=== PATIENT | female | born 1995 | race Caucasian/White ===

== ENCOUNTER 2017-03-16 13:04 | Emergency (ER) | payer MEDICAID ==
[~2017-03-16] VITALS: Ht 160 cm; Wt 57.5 kg
[~2017-03-16 13:04] MED LIST: FERR-55 PO; FOLI-49 PO; PNV1TABL43 PO
[2017-03-16 13:07] VITALS: Ht 160 cm; Wt 57.5 kg
[2017-03-16 15:07] LABS: ADD SCAN DIFF NO
[2017-03-16 15:09] LABS: BASOPHILS % 0.2 % (0.0-2.0); EOSINOPHILS # 0.2 10^3/ul (0.0-0.5); EOSINOPHILS % 2.7 % (0.0-7.0); HEMATOCRIT 31.8 % (37.0-47.0); HEMOGLOBIN 10.9 g/dl (12.0-16.0); LYMPHOCYTES # 1.5 10^3/ul (0.8-2.9); LYMPHOCYTES % 17.8 % (15.0-51.0); MEAN CORPUSCULAR HGB CONC 34.3 g/dl (32.0-37.0); MEAN CORPUSCULAR VOLUME 96.4 fl (82.0-101.0); MEAN PLATELET VOLUME 10.2 fl (7.4-10.4); MONOCYTE # 0.5 10^3/ul (0.3-0.9); MONOCYTES % 6.3 % (0.0-11.0); NEUTROPHIL # 6.2 10^3/ul (1.6-7.5); NEUTROPHILS % 72.4 % (39.0-77.0); PLATELET COUNT 219 10^3/UL (140-415); RED CELL DISTRIBUTION WIDTH 12.9 % (11.5-14.5); WHITE BLOOD COUNT 8.6 10^3/ul (4.8-10.8)
[2017-03-16 15:13] LABS: ADD UMIC NO; URINE BILIRUBIN (Dip) NEGATIVE (NEGATIVE); URINE BLOOD (Dip) NEGATIVE (NEGATIVE); URINE COLOR LT. YELLOW (YELLOW); URINE GLUCOSE (Dip) NEGATIVE (NEGATIVE); URINE KETONES (Dip) NEGATIVE (NEGATIVE); URINE LEUKOCYTE ESTERASE (Dip) NEGATIVE (NEGATIVE); URINE NITRITE (Dip) NEGATIVE (NEGATIVE); URINE TOTAL PROTEIN (Dip) NEGATIVE (NEGATIVE); URINE UROBILINOGEN (Dip) 0.2 E.U./dL (0.1-1.0)
--- NOTE | 2017-03-16 15:24 | RADRPT ---
PROCEDURE: US OB. CLINICAL INDICATION: Size and dates , pelvic pain TECHNIQUE: Multiple sonographic images of the pelvis and gravid uterus were obtained. The images were reviewed on a PACS workstation. COMPARISON: No prior studies are available for comparison. FINDINGS: The cervix is closed with a length of 4.0 cm. There is a single viable intrauterine gestation. Cardiac activity is present with 140 beats per min [place]. There is a variable/breech presentation. The placenta is anterior. There is no evidence for an abruption or placenta previa. There is a normal amount of amniotic fluid with a MVP = 5.3 cm. Measurements were made in order to determine age. The results are as follows: BPD =5.3 cm HC =19 cm AC =16.4 cm FL =3.6 cm Estimated gestational age of approximately 21 weeks and 4 days based on ultrasound measurements. Clinical age: 21 weeks and 3 days. The estimated date of delivery is 07/23/17, based on ultrasound measurements. The EFW = 428 g, 48%, based on LMP age. The ovaries are not visualized. RPTAT: AA IMPRESSION: Single viable intrauterine gestation of approximately 21 weeks and 4 days based on ultrasound measu rements. .Wiliam Farmer MD, Date Time Electronically viewed and signed by .Wiliam Farmer MD, on 03/16/2017 15:24 .S/
[2017-03-16 15:26] LABS: ALBUMIN/GLOBULIN RATIO 1.21
[2017-03-16 15:33] LABS: ALBUMIN 3.9 g/dl (3.3-4.9); BILIRUBIN,INDIRECT 0.2 mg/dl (0-1.1); BILIRUBIN,TOTAL 0.2 mg/dl (0.2-1.3); CALCIUM 8.9 mg/dl (8.4-10.2); CREATININE 0.41 mg/dl (0.44-1.00); POTASSIUM 3.7 mmol/L (3.5-5.1); TOTAL PROTEIN 7.1 g/dl (6.1-8.1)
[2017-03-16] MEDS ORDERED: ACET325T33 PO (15:52)
--- NOTE | 2017-03-16 16:44 | ERD ---
ER Documentation Chief Complaint Date/Time DATE: 03/16/17 TIME: 16:37 Chief Complaint abdominal pain and bilateral feet swelling x 2 days, 19 weeks HPI 21-year-old female with last menstrual period October 16 who is 19 weeks presents to the emergency room complaining of left pelvic pain that comes and goes for the past couple months. Patient states the pain has started this morning again and she rates it moderate in severity. Patient denies any nausea, vomiting, fevers, diarrhea, constipation, urinary symptoms. She states that she also has noted swelling in her feet that come and go for the past couple days, she states increased with standing. She denies any swelling in her feet at this time. She denies any chest pain, shortness of breath, palpitations ROS All systems reviewed and are negative except as per history of present illness. Medications Home Meds Active Scripts Acetaminophen* (Tylenol*) 325 Mg Tablet, 2 TAB PO Q6 Y for PAIN AND OR ELEVATED TEMP, #20 TAB Prov:NALDO CHAMBERLAIN PA-C 03/16/17 Reported Medications Folic Acid* (Folic Acid*) 1 Mg Tablet, 1 MG PO DAILY 09/28/13 Ferrous Sulfate* (Ferrous Sulfate*) 325 Mg Tablet, 325 MG PO BID 09/28/13 Vit/Fe Fumarate/Fa* ( Vitamin Tablet*) 1 Tab Tablet, 1 TAB PO DAILY 09/28/13 Allergies Allergies: Coded Allergies: No Known Allergies (Verified Allergy, 11/12/13) Physical Exam Vitals Vital Signs Date Time Temp Pulse Resp B/P Pulse Ox O2 Delivery O2 Flow Rate FiO2 03/16/17 13:07 98.3 87 20 104/58 100 Physical Exam GENERAL: well-developed/well-nourished, in no apparent distress, non-toxic appearing HENT: NC/AT, moist mucous membranes EYES: Conjunctiva normal NECK: Supple, no lymphadenopathy PULM: CTA bilaterally, no rales, rhonchi, or wheezing heard CV: Normal S1S2, RRR, good capillary refill GI: Soft, non-distended, nontender to palpation Normal bowel sounds, no masses or organomegaly felt on exam No gross peritonitis, no bruits Negative Rovsing, negative Dai, negative McBurney's point, Negative CVAT BACK: No masses EXT: No clubbing, cyanosis, or edema NEURO: Alert and Orientated SKIN: Intact, normal turgor PSYCH: Normal mood and mentation Result Diagram: 03/16/17 1455 03/16/17 1455 Results 24 hrs Laboratory Tests Test 03/16/17 14:55 White Blood Count 8.610^3/ul Red Blood Count 3.3010^6/ul Hemoglobin 10.9g/dl Hematocrit 31.8% Mean Corpuscular Volume 96.4fl Mean Corpuscular Hemoglobin 33.0pg Mean Corpuscular Hemoglobin Concent 34.3g/dl Red Cell Distribution Width 12.9% Platelet Count 95001^3/UL Mean Platelet Volume 10.2fl Neutrophils % 72.4% Lymphocytes % 17.8% Monocytes % 6.3% Eosinophils % 2.7% Basophils % 0.2% Nucleated Red Blood Cells % 0.0/100WBC Neutrophils # 6.210^3/ul Lymphocytes # 1.510^3/ul Monocytes # 0.510^3/ul Eosinophils # 0.210^3/ul Basophils # 0.010^3/ul Nucleated Red Blood Cells # 0.010^3/ul Urine Color LT. YELLOW Urine Clarity CLEAR Urine pH 6.0 Urine Specific [place] 1.010 Urine Ketones NEGATIVE Urine Nitrite NEGATIVE Urine Bilirubin NEGATIVE Urine Urobilinogen 0.2 E.U./dL Urine Leukocyte Esterase NEGATIVE Urine Hemoglobin NEGATIVE Urine Glucose NEGATIVE% Urine Total Protein NEGATIVE Sodium Level 135mmol/L Potassium Level 3.7mmol/L Chloride Level 106mmol/L Carbon Dioxide Level 23mmol/L Anion Gap 10 Blood Urea Nitrogen 9mg/dl Creatinine 0.41mg/dl Glucose Level 84mg/dl Calcium Level 8.9mg/dl Total Bilirubin 0.2mg/dl Direct Bilirubin 0.00mg/dl Indirect Bilirubin 0.2mg/dl Aspartate Amino Transf (AST/SGOT) 32IU/L Alanine Aminotransferase (ALT/SGPT) 36IU/L Alkaline Phosphatase 61IU/L Total Protein 7.1g/dl Albumin 3.9g/dl Globulin 3.20g/dl Albumin/Globulin Ratio 1.21 Lipase 37U/L Procedures/MDM This is a 21-year-old female with 19 weeks presenting to the emergency department complaining of left-sided pelvic pain, on examination her abdominal exam was unremarkable. Possibly non-specific pain due to , differentials considered include but not limited to constipation, diverticulitis , cholecystitis, appendicitis, urinary tract infection, and other acute abdominal conditions. Lab work was done in the ED. Lab work was drawn. CBC did not show any evidence of leukocytosis or anemia. CMP did not show any evidence of renal, liver, or electrolyte abnormalities. Lipase was normal. UA did not show any evidence of hemoglobin or urinary tract infection. Pelvic ultrasound was done and radiologist stated: Single viable intrauterine gestation of approximately 21 weeks and 4 days based on ultrasound measurements. In addition patient has a complaint of bilateral swelling in her feet, this is likely due to swelling from and prolonged standing. She did not have any edema or swelling on examination. Low suspicion for DVT or CHF at this time. Patient is appropriate for discharge to follow-up with her primary care physician and her [employer]. I have discussed with her to return to the ER for any worsening sinus symptoms. She understands and agrees with plan Stable discharge home Departure Diagnosis: Primary Impression: Pelvic pain Additional Impression: Peripheral edema Condition: Stable Patient Instructions: Peripheral Edema, Bilateral, Pelvic Pain In : Unclear (2-3 Trimester) Referrals: Remed[facility] doctorponce Additional Instructions: Visite a vides marce pablo para un EXAMEN.Regrese a estas instalaciones si no se mejora brian esperbamos o brian le dijimos. Regrese a estas instalaciones si no se mejora brian esperbamos o brian le dijimos. NALDO CHAMBERLAIN PA-C March 16, 2017 16:44
== END 2017-03-16 17:07 | disposition home or self-care (01) ==
LOC: FTE 13:04
DX: O26.892 Other specified pregnancy related conditions, second trimester (principal); R10.2 Pelvic and perineal pain; R60.0 Localized edema; Z3A.21 21 weeks gestation of pregnancy
CPT/HCPCS: 76805; 80053; 81003; 83690; 85025; 87086; Z7502

== ENCOUNTER 2017-04-18 14:31 | Outpatient (CLI) | payer MEDICAID ==
[~2017-04-18] VITALS: Ht 152.4 cm; Wt 61.3 kg
[~2017-04-18 14:31] MED LIST changes: +ACET325T33 PO
[2017-04-18 15:08] VITALS: BP 104/57; PULSE 90; RESP 18; Ht 152.4 cm; Wt 61.3 kg
[2017-04-18 15:58] LABS: ADD UMIC YES; UR ASCORBIC ACID 40 mg/dL (NEGATIVE); UR BILIRUBIN (Dip) NEGATIVE (NEGATIVE); UR BLOOD (Dip) NEGATIVE (NEGATIVE); UR CLARITY SLIGHTLY CLOUDY (CLEAR); UR COLOR YELLOW (YELLOW); UR GLUCOSE (Dip) NEGATIVE (NEGATIVE); UR KETONES (Dip) NEGATIVE (NEGATIVE); UR LEUKOCYTE ESTERASE (Dip) TRACE Leu/ul (NEGATIVE); UR NITRITE (Dip) NEGATIVE (NEGATIVE); UR RBC 1 /HPF (0-5); UR SPECIFIC GRAVITY (Dip) 1.021 (1.003-1.030); UR SQUAMOUS EPITHELIAL CELL FEW /HPF (FEW); UR TOTAL PROTEIN (Dip) NEGATIVE (NEGATIVE); UR UROBILINOGEN (Dip) NEGATIVE (NEGATIVE)
--- NOTE | 2017-04-18 16:05 | RADRPT ---
PROCEDURE: OB ultrasound for biophysical profile CLINICAL INDICATION: Contractions. TECHNIQUE: Multiple sonographic images of the pelvis were obtained. Transabdominal view of the gr avid uterus are available for review. The images were reviewed on a PACS workstation. COMPARISON: None FINDINGS: breathing movement = 2/2 tone = 2/2 motion = 2/2 BREANA = 2/2 BREANA = 12.4 cm Single live intrauterine with cardiac activity. heart rate equals 158 beats p er minute. Presentation is cephalic. The placenta is anterior. IMPRESSION: 1. Single viable intrauterine gestation. 2. Biophysical profile = 8/8. 3. BREANA = 12.4 cm. RPTAT: KK .Justin Wells MD, Date Time Electronically viewed and signed by .Justin Wells MD, MD on 04/18/2017 16:05 .B/
--- NOTE | 2017-04-18 17:04 | RADRPT ---
PROCEDURE: Limited obstetric ultrasound CLINICAL INDICATION: PTL TECHNIQUE: Multiple transverse and longitudinal grayscale images of the pelvis were obtained edvi sabdominally and endovaginally.. COMPARISON: Obstetrical ultrasound from the same date FINDINGS: There is a single live intrauterine gestation in a vertex position with a heart rate of 144 bp m. The cervix is closed and measures 3.5 cm in length. RPTAT: AA IMPRESSION: The cervix is closed and measures 3.5 cm in length. Physician Rachel Date Time Electronically viewed and signed by Michele Baires Physician on 04/18/2017 17:04 /
--- NOTE | 2017-04-18 17:53 | QN ---
Documentation Comment iup 26 weeks pt feels "hot" vss exam wnl us wnl a/p iup 26 weeks false labor dc home po hydration; MARCOS JIMÉNEZ MD Apr 18, 2017 17:53
== END 2017-04-18 18:00 | disposition home or self-care (01) ==
LOC: OBT 14:31 → L-D 14:31 → OBT 18:00
PROVIDERS: ATTEND Obstetrics & Gynecology
DX: O47.03 False labor before 37 completed weeks of gestation, third trimester (principal); Z3A.26 26 weeks gestation of pregnancy
CPT/HCPCS: 76817; 76818; 81001; Z7500; G0463

== ENCOUNTER 2017-05-19 14:42 | Outpatient (CLI) | payer MEDICAID ==
[~2017-05-19] VITALS: Ht 152.4 cm; Wt 64.0 kg
[~2017-05-19 14:42] MED LIST changes: -ACET325T33 PO
[2017-05-19 15:10] VITALS: Ht 152.4 cm; Wt 64.0 kg
[2017-05-19 15:11] VITALS: BP 105/54; PULSE 84
[2017-05-19 15:31] LABS: ADD UMIC YES; UR ASCORBIC ACID NEGATIVE (NEGATIVE); UR BACTERIA FEW /HPF (NONE SEEN); UR BILIRUBIN (Dip) NEGATIVE (NEGATIVE); UR BLOOD (Dip) NEGATIVE (NEGATIVE); UR CLARITY CLEAR (CLEAR); UR COLOR YELLOW (YELLOW); UR GLUCOSE (Dip) 1+ mg/dL (NEGATIVE); UR KETONES (Dip) NEGATIVE (NEGATIVE); UR LEUKOCYTE ESTERASE (Dip) TRACE Leu/ul (NEGATIVE); UR NITRITE (Dip) NEGATIVE (NEGATIVE); UR RBC 0 /HPF (0-5); UR SPECIFIC GRAVITY (Dip) 1.013 (1.003-1.030); UR TOTAL PROTEIN (Dip) NEGATIVE (NEGATIVE); UR UROBILINOGEN (Dip) NEGATIVE (NEGATIVE)
--- NOTE | 2017-05-19 17:24 | RADRPT ---
PROCEDURE: Umbilical ultrasound CLINICAL INDICATION: Umbilical pain. TECHNIQUE: Multiple transverse longitudinal hall scale and color Doppler images of the umbilical a suzanna were obtained. COMPARISON: None FINDINGS: No mass lesion is seen. No fluid collection is identified. The visualized placenta appears to be u nremarkable. IMPRESSION: No sonographic evidence for an acute abnormality. RPTAT: HPNM Physician Melody Date Time Electronically viewed and signed by Julien Wolf Physician on 05/19/2017 17:24 /
--- NOTE | 2017-05-19 18:03 | CONS ---
Date/Time of Note Date/Time of Note DATE: 05/19/17 TIME: 17:54 Consultation Date/Type/Reason Admit Date/Time May 19, 2017 Obstetrical triage consult Reason for Consultation This patient is a 21 years old 2 para 1 who had her first delivery of the spontaneous vaginal . Her estimated date of confinement is July 24, 2017 which makes her 30 weeks and 4 days. She came to triage clinic complaining of the "belly button area" abdominal pain for 3 days. Her course was uneventful for so far. She is currently taking her vitamins as well as iron On examination she is a year well-developed well-nourished lady near term. Her general vital signs are normal with blood pressure of 105/59, pulse rate of 84 respiration, 18 and temperature 98.3,. On examination her abdomen is soft no CVA tenderness she has slight tenderness around the umbilical area on the uterus I tried to palpate any abnormality or any nodules on the anterior aspect of the uterus and this area did not find any however her tenderness is mostly limited in umbilical area on the urine. On laboratory studies her urinalysis basically was negative except for 1+ glucose ENT: No bleeding, No congestion, No discharge, No dysphagia, No no complaints, No other, No pain, No sore throat Respiratory: No cough, No no complaints, No other, No pain, No pleuritic pain, No shortness of breath, No sputum, No wheezing Cardiovascular: No chest pain, No edema, No lightheadedness, No no complaints, No orthopenea, No other, No palpitations, No paroxysmal nocturnal dyspnea Gastrointestinal: other (Abdomen is soft as I explained she has an small area of the periumbilical area which is apparently somewhat tender), No blood, No constipation, No decreased appetite, No diarrhea, No flatus, No nausea, No no complaints, No pain, No passing stool, No vomiting Genitourinary: other (No pelvic exam was done due to fact that she did not have any contractions), No bleeding, No discharge, No dysuria, No flank pain, No hematuria, No no complaints Musculoskeletal: No back pain, No bone/joint pain, No neck pain, No no complaints, No other, No restricted range of motion, No swelling Skin: No bruising, No erythema, No laceration, No no complaints, No other, No pruritis, No rash, No skin lesions Neurologic: No confusion, No dizziness, No focal-weakness, No headache, No no complaints, No other, No seizure, No syncope Endocrine: No dry skin, No no complaints, No other, No polydypsia, No polyuria , No temp intolerance Additional Comments we did an ultrasound on the area of the to be she was claiming is painful looking for possible fibroid nodule or any other abnormality however the result was no mass or lesion is seen, no fluid collection at the visualized placenta is normal. The sonographic impression of no evidence of acute abnormalities. With these negative finding patient was discharged home to return in triage in case of severe pain or any other abnormality in which case we will refer her to emergency room for further workup. Final diagnosis: Intrauterine of 30-1/2 weeks abdominal pain Social History Smoking Status: Never smoker Exam/Review of Systems Vital Signs Vitals Vital Signs Date Time Temp Pulse Resp B/P Pulse Ox O2 Delivery O2 Flow Rate FiO2 05/19/17 15:11 98.3 84 105/54 Results Results 24 hrs Laboratory Tests Test 05/19/17 15:10 Urine Color YELLOW Urine Clarity CLEAR Urine pH 6.0 Urine Specific [place] 1.013 Urine Ketones NEGATIVE Urine Nitrite NEGATIVE Urine Bilirubin NEGATIVE Urine Urobilinogen NEGATIVE Urine Leukocyte Esterase TRACE A Urine Microscopic RBC 0 Urine Microscopic WBC 1 Urine Bacteria FEW A Urine Hemoglobin NEGATIVE Urine Glucose 1+ H Urine Total Protein NEGATIVE LUIS ROSENTHAL MD May 19, 2017 18:03
--- NOTE | 2017-05-19 18:07 | TRIAGE ---
OB Triage Datetime Report Generated by CPN: 05/19/2017 18:07 Datetime: 05/19/2017 17:45 Stage of : OB Triage Datetime: 05/19/2017 17:39 Labor Evaluation Frequency: 0 Monitor Mode: External Resting Tone [place]: Relaxed Heart Rate FHR Baseline Rate: 140 Monitor Mode: External US Variability: Moderate 6-25 bpm Accelerations: None Decelerations: None Pain Assessment Pain Scale: 3 Pain Presence: Constant Pain Type: Ache Pain Location: Abdomen Pain Goal: 3 Pain Relief Measures: Comfort Measures Datetime: 05/19/2017 16:28 Stage of : OB Triage Datetime: 05/19/2017 16:02 Labor Evaluation Frequency: 0 Monitor Mode: External Resting Tone [place]: Relaxed Heart Rate FHR Baseline Rate: 145 Monitor Mode: External US Variability: Moderate 6-25 bpm Accelerations: 10X10 Decelerations: None Category: Category I Pain Assessment Pain Scale: 8 Pain Presence: Constant Pain Goal: 3 Pain Relief Measures: Comfort Measures Datetime: 05/19/2017 15:06 Stage of : OB Triage Assessment Type: Triage Maternal Assessment Level of Consciousness: Fully Conscious DTR's/Clonus: DTRs 2+; No Clonus Headache: Denies Blurred Vision: No Respiratory Effort: Unlabored; Regular Rhythm; Equal Expansion Breath Sounds, Left: Clear and Equal Breath Sounds, Right: Clear and Equal Nausea/Vomiting: Denies RUQ Epigastric Pain: Denies Facial Edema: None Temperature Route: Axillary Fall Risk Assessment History of Falling: (0) No Secondary Diagnosis: (0) No Ambulatory Aid: (0) Bedrest/Nurse Assist IV Therapy: (0) No Gait: (0) Normal/Bedrest/Immobile Mental Status: (0) Oriented to Own Ability Fall Score: 0 Fall Risk Score Definition: No Risk: No action required Labor Evaluation Frequency: 0 Monitor Mode: External Resting Tone [place]: Relaxed Heart Rate FHR Baseline Rate: 145 Monitor Mode: External US Variability: Moderate 6-25 bpm Decelerations: None Category: Category II Pain Assessment Pain Scale: 8 Pain Presence: Constant Pain Type: Ache Pain Location: Abdomen Pain Goal: 3 Pain Relief Measures: Comfort Measures Datetime: 05/19/2017 15:05 Time of Arrival: 05/19/2017 14:37 EGA: 30.4 Arrived By: Ambulatory Arrived From: Home Chief Complaint: C/O CONSTANT BELLY BUTTON PAIN X 3 DAYS, DENIES BLEEDING, UC'S, OR LEAKING Movement: Present Contractions: Denies/Absent Rupture of Membranes: Denies Vaginal Bleeding: None Vaginal Discharge: Denies Recent Sexual Intercouse: Denies Abdominal Trauma: Not Applicable Patient Complaints: None Time Provider Notified: 05/19/2017 16:30 Provider Notified: FOROOHAR Initial Plan: MONITOR, ABDOMINAL U/S Datetime: 04/18/2017 17:46 Labor Evaluation Frequency: 0 Monitor Mode: External Resting Tone [place]: Relaxed Heart Rate FHR Baseline Rate: 145 Monitor Mode: External US Variability: Moderate 6-25 bpm Decelerations: None Category: Category I Pain Assessment Pain Scale: 0 Pain Presence: None/Denies Pain Type: N/A Pain Goal: 3 Pain Relief Measures: Comfort Measures Datetime: 04/18/2017 17:45 Stage of : OB Triage Datetime: 04/18/2017 16:35 Labor Evaluation Frequency: 0 Monitor Mode: External Pattern: Normal: <= 5 Contractions in 10 Minutes Resting Tone [place]: Relaxed Heart Rate FHR Baseline Rate: 145 Monitor Mode: External US Variability: Moderate 6-25 bpm Accelerations: 10X10 Decelerations: None Category: Category I Pain Assessment Pain Scale: 0 Pain Presence: None/Denies Pain Type: N/A Pain Goal: 3 Pain Relief Measures: Comfort Measures Datetime: 04/18/2017 16:02 Stage of : OB Triage Datetime: 04/18/2017 15:35 Stage of : OB Triage Assessment Type: Triage Maternal Assessment Level of Consciousness: Fully Conscious DTR's/Clonus: DTRs 2+; No Clonus Headache: Denies Blurred Vision: No Respiratory Effort: Unlabored; Regular Rhythm; Equal Expansion Breath Sounds, Left: Clear and Equal Breath Sounds, Right: Clear and Equal Nausea/Vomiting: Denies RUQ Epigastric Pain: Denies Facial Edema: None Temperature Route: Axillary Fall Risk Assessment History of Falling: (0) No Secondary Diagnosis: (0) No Ambulatory Aid: (0) Bedrest/Nurse Assist IV Therapy: (0) No Gait: (0) Normal/Bedrest/Immobile Mental Status: (0) Oriented to Own Ability Fall Score: 0 Fall Risk Score Definition: No Risk: No action required Labor Evaluation Frequency: 0 Monitor Mode: External Resting Tone [place]: Relaxed Heart Rate FHR Baseline Rate: 135 Monitor Mode: External US Variability: Moderate 6-25 bpm Accelerations: 10X10 Decelerations: None Category: Category I Pain Assessment Pain Scale: 0 Pain Presence: None/Denies Pain Goal: 3 Pain Relief Measures: Comfort Measures Datetime: 04/18/2017 15:02 Stage of : OB Triage Assessment Type: Triage Maternal Assessment Level of Consciousness: Fully Conscious DTR's/Clonus: DTRs 2+; No Clonus Headache: Denies Blurred Vision: No Respiratory Effort: Unlabored; Regular Rhythm; Equal Expansion Breath Sounds, Left: Clear and Equal Breath Sounds, Right: Clear and Equal Nausea/Vomiting: Denies RUQ Epigastric Pain: Denies Lower Extremities Edema: None Degree: None Upper Extremities Edema: None Degree: None Facial Edema: None Temperature Route: Axillary Fall Risk Assessment History of Falling: (0) No Secondary Diagnosis: (0) No Ambulatory Aid: (0) Bedrest/Nurse Assist IV Therapy: (0) No Gait: (0) Normal/Bedrest/Immobile Mental Status: (0) Oriented to Own Ability Fall Score: 0 Fall Risk Score Definition: No Risk: No action required Labor Evaluation Frequency: none palpated Monitor Mode: External Heart Rate FHR Baseline Rate: 145 (Annotations: initial) Monitor Mode: External US Pain Assessment Pain Scale: 2 Datetime: 04/18/2017 14:57 Time of Arrival: 04/18/2017 14:57 EGA: 26.1 Arrived By: Ambulatory Arrived From: Home Chief Complaint: side pain and dizziness Movement: Present Rupture of Membranes: Denies Vaginal Bleeding: None Vaginal Discharge: Denies Recent Sexual Intercouse: Denies Abdominal Trauma: Not Applicable Patient Complaints: Cramping Time Provider Notified: 04/18/2017 16:00 Provider Notified: JESSY Initial Plan: efm, BPP, U/A, CL
== END 2017-05-19 17:58 | disposition home or self-care (01) ==
LOC: OBT 14:42 → L-D 14:42 → OBT 17:58
PROVIDERS: ATTEND Obstetrics & Gynecology
DX: O26.893 Other specified pregnancy related conditions, third trimester (principal); Z3A.30 30 weeks gestation of pregnancy; R10.9 Unspecified abdominal pain
CPT/HCPCS: 76705; 81001; Z7500; G0463

== ENCOUNTER 2017-07-18 05:40 | Inpatient (IN) | payer MEDICAID ==
[~2017-07-18] VITALS: Ht 154.9 cm; Wt 66.7 kg
[2017-07-18 05:58] VITALS: BP 128/81; PULSE 87; RESP 18; Ht 154.9 cm; Wt 66.7 kg
[2017-07-18] MEDS ORDERED: AMPICILLIN 2 GM/NS (PMX) 100 ML IV ONE (06:00)
[2017-07-18] MEDS ORDERED: CARBOPROST 250 MCG INJ IM PRN ×2 (06:00→12:00)
[2017-07-18] MEDS ORDERED: BUTORPHANOL 2 MG INJ IV PRN (06:00)
[2017-07-18] MEDS ORDERED: OXYTOCIN 30 UNITS/LR 500 ML IV PRN ×2 (06:00→12:00)
[2017-07-18] MEDS ORDERED: OXYTOCIN 30 UNITS/LR 500 ML IV SCH (06:00)
[2017-07-18] MEDS ORDERED: LIDOCAINE 1% (MPF) 30 ML INJ INJ PRN (06:00)
[2017-07-18] MEDS ORDERED: METHYLERGONOVINE 0.2 MG INJ IM PRN ×2 (06:00→12:00)
[2017-07-18] MEDS ORDERED: MISOPROSTOL 200 MCG TAB PR PRN ×2 (06:00→12:00)
--- NOTE | 2017-07-18 06:22 | TRIAGE ---
OB Triage Datetime Report Generated by CPN: 07/18/2017 06:22 Datetime: 07/18/2017 06:09 Time of Arrival: 07/18/2017 06:05 EGA: 39.1 Arrived By: Wheelchair Arrived From: Home Chief Complaint: contractions since 0245 Movement: Present Contractions: Regular Time Contractions Began: 07/18/2017 02:45 Contractions: 2-3min Rupture of Membranes: Denies Vaginal Discharge: Denies Recent Sexual Intercouse: Denies Patient Complaints: Contractions Time Provider Notified: 07/18/2017 05:57 Provider Notified: reiche Initial Plan: efm, ve, call md for orders Datetime: 07/18/2017 06:02 Membrane Status: Intact Datetime: 07/18/2017 05:52 Vaginal Exam Dilatation (cms): 3.5 Effacement (%): 90 Station: -1 Exam By: MARCO Vaginal Bleeding: None Cervix, Consistency: Soft Cervix, Position: Midposition Datetime: 07/18/2017 05:50 Assessment Type: Triage Maternal Assessment Level of Consciousness: Fully Conscious DTR's/Clonus: DTRs 2+; No Clonus Headache: Denies Blurred Vision: No Respiratory Effort: Unlabored; Regular Rhythm; Equal Expansion Nausea/Vomiting: Denies RUQ Epigastric Pain: Denies Lower Extremities Edema: None Upper Extremities Edema: None Facial Edema: None Fall Risk Assessment History of Falling: (0) No Secondary Diagnosis: (0) No Ambulatory Aid: (0) Bedrest/Nurse Assist IV Therapy: (0) No Gait: (0) Normal/Bedrest/Immobile Mental Status: (0) Oriented to Own Ability Fall Score: 0 Fall Risk Score Definition: No Risk: No action required Datetime: 05/19/2017 15:06 Fall Score: 0 Fall Risk Score Definition: No Risk: No action required Datetime: 05/19/2017 15:05 EGA: 30.4 Datetime: 04/18/2017 15:35 Fall Score: 0 Fall Risk Score Definition: No Risk: No action required Datetime: 04/18/2017 15:02 Fall Score: 0 Fall Risk Score Definition: No Risk: No action required Datetime: 04/18/2017 14:57 EGA: 26.1
[2017-07-18] MEDS: LACTATED RINGER'S 1,000 ML IV SCH ×2 (06:26→18:55)
[2017-07-18 06:27] LABS: BASOPHILS % 0.5 % (0.0-2.0); EOSINOPHILS # 0.1 10^3/ul (0.0-0.5); EOSINOPHILS % 1.2 % (0.0-7.0); HEMATOCRIT 35.4 % (37.0-47.0); HEMOGLOBIN 12.3 g/dl (12.0-16.0); LYMPHOCYTES # 1.4 10^3/ul (0.8-2.9); LYMPHOCYTES % 16.9 % (15.0-51.0); MEAN CORPUSCULAR HEMOGLOBIN 32.4 pg (29.0-33.0); MEAN CORPUSCULAR HGB CONC 34.7 g/dl (32.0-37.0); MEAN CORPUSCULAR VOLUME 93.2 fl (82.0-101.0); MEAN PLATELET VOLUME 10.8 fl (7.4-10.4); MONOCYTE # 0.6 10^3/ul (0.3-0.9); MONOCYTES % 6.7 % (0.0-11.0); NEUTROPHIL # 6.3 10^3/ul (1.6-7.5); NEUTROPHILS % 73.6 % (39.0-77.0); PLATELET COUNT 209 10^3/UL (140-415); RED CELL DISTRIBUTION WIDTH 12.9 % (11.5-14.5); WHITE BLOOD COUNT 8.5 10^3/ul (4.8-10.8)
[2017-07-18 06:47] LABS: INR 0.99; PROTIME 13.1 Sec (12.2-14.2)
[2017-07-18] MEDS ORDERED: LACTATED RINGER'S 1,000 ML IV PRN (07:00)
[2017-07-18] MEDS ORDERED: MINERAL OIL LIGHT 10 ML VIAL TOP ONE (08:00)
[2017-07-18] MEDS ORDERED: IBUPROFEN 600 MG TAB PO PRN (08:00)
[2017-07-18] MEDS ORDERED: FENTAnyl 50 MCG/ML VIAL ONE (09:09)
[2017-07-18] MEDS: OXYTOCIN 30 UNITS/LR 500 ML IV SCH ×4 (09:09→18:55)
[2017-07-18] MEDS ORDERED: FENTAnyl 50 MCG/ML VIAL IV ONE (09:30)
[2017-07-18] MEDS ORDERED: AMPICILLIN 1 GM/NS (PMX) 50 ML IV SCH (10:00)
--- NOTE | 2017-07-18 10:21 | LDN ---
Date/Time of Note Date/Time of Note DATE: 07/18/17 TIME: 10:20 Delivery Summary pt pushed and delivered viable without difficulty. can x1 loose. Placenta Delivered: Spontaneously Meconium: none Laceration repair: none Anesthesia type: None Estimated blood loss: 250 Sponge & Needle done & correct: Yes All needle counts correct: Yes Any foreign bodies felt in the: No Problems: Infant Delivery Information Sex Sex: male Suctioning Nose & mouth suctioned at long: Yes Delee suction performed: No Umbilical Cord Umbilical cord with: 3 Vessels Cord presentations: nuchal cord Nuchal cord present X: 1 Cord Blood was obtained: Yes MARCOS JIMÉNEZ MD Jul 18, 2017 10:21
[2017-07-18] MEDS ORDERED: LACTATED RINGER'S 1,000 ML IV* SCH (11:42)
[2017-07-18 11:45] VITALS: BP 107/58; PULSE 71; RESP 18
[2017-07-18] MEDS ORDERED: BENZOCAINE 20% 56 ML SPRAY TOP PRN (12:00)
[2017-07-18] MEDS ORDERED: WITCH HAZEL/GLYCERIN PAD PR PRN (12:00)
[2017-07-18] MEDS: IBUPROFEN 600 MG TAB PO SCH ×3 (12:00→23:59)
[2017-07-18] MEDS ORDERED: HYDROCODONE/APAP (5/325) TAB PO PRN (12:00)
[2017-07-18] MEDS: HYDROCODONE/APAP (5/325) TAB PO PRN (13:39)
[2017-07-18 16:00] VITALS: BP 91/58; PULSE 71; RESP 16
[2017-07-18 17:40] LABS: BARBITURATES Negative (NEGATIVE); BENZODIAZEPINES Negative (NEGATIVE); CANNABINOIDS Negative (NEGATIVE); COCAINE Negative (NEGATIVE); OPIATES Negative (NEGATIVE)
[2017-07-18 20:00] VITALS: BP 103/64; PULSE 86; RESP 18
[2017-07-18] MEDS: SENNA/DOCUSATE NA (8.6MG/50MG) TAB PO SCH (21:10)
[2017-07-18] MEDS: FERROUS SULFATE (EC) 325 MG TAB PO SCH (21:10)
[2017-07-19] VITALS: BP 101/62; PULSE 75; RESP 18
[2017-07-19 03:40] VITALS: BP 102/56; PULSE 72; RESP 18
[2017-07-19] MEDS: IBUPROFEN 600 MG TAB PO SCH ×4 (06:00→23:18)
[2017-07-19 08:30] VITALS: BP 95/53
[2017-07-19] MEDS: PRENATAL VITAMIN PO SCH (09:00)
[2017-07-19] MEDS ORDERED: INFLUENZA VIRUS VACCINE 0.5 ML SYG IM* ONE (09:00)
[2017-07-19] MEDS: FOLIC ACID 1 MG TAB PO SCH (09:09)
[2017-07-19] MEDS: FERROUS SULFATE (EC) 325 MG TAB PO SCH ×2 (09:09→20:38)
[2017-07-19] MEDS: SENNA/DOCUSATE NA (8.6MG/50MG) TAB PO SCH ×2 (09:10→20:38)
[2017-07-19 09:17] LABS: BASOPHILS % 0.4 % (0.0-2.0); EOSINOPHILS # 0.1 10^3/ul (0.0-0.5); EOSINOPHILS % 1.2 % (0.0-7.0); HEMATOCRIT 33.3 % (37.0-47.0); HEMOGLOBIN 11.2 g/dl (12.0-16.0); LYMPHOCYTES # 2.2 10^3/ul (0.8-2.9); LYMPHOCYTES % 20.3 % (15.0-51.0); MEAN CORPUSCULAR HEMOGLOBIN 31.5 pg (29.0-33.0); MEAN CORPUSCULAR HGB CONC 33.6 g/dl (32.0-37.0); MEAN CORPUSCULAR VOLUME 93.8 fl (82.0-101.0); MEAN PLATELET VOLUME 10.6 fl (7.4-10.4); MONOCYTE # 0.7 10^3/ul (0.3-0.9); MONOCYTES % 6.7 % (0.0-11.0); NEUTROPHIL # 7.8 10^3/ul (1.6-7.5); NEUTROPHILS % 70.8 % (39.0-77.0); PLATELET COUNT 190 10^3/UL (140-415); RED BLOOD COUNT 3.55 10^6/ul (4.20-5.40); RED CELL DISTRIBUTION WIDTH 13.2 % (11.5-14.5)
--- NOTE | 2017-07-19 10:16 | PN ---
Date/Time of Note Date/Time of Note DATE: 07/19/17 TIME: 10:15 OB Subjective Subjective Subjective Post normal vaginal delivery day 1 Afebrile abdomen soft uterus firm lochia normal extremity normal NASIM BUSTILLO MD Jul 19, 2017 10:16
[2017-07-19 16:07] VITALS: BP 111/59; PULSE 77; RESP 20
[2017-07-19 20:00] VITALS: BP 111/70; PULSE 75; RESP 18
[2017-07-20] MEDS ORDERED: LANOLIN 7 GM TUBE TOP ONE (04:44)
[2017-07-20 04:46] VITALS: BP 88/56; PULSE 97; RESP 20
[2017-07-20] MEDS: HYDROCODONE/APAP (5/325) TAB PO PRN ×2 (04:46→17:19)
[2017-07-20] MEDS: IBUPROFEN 600 MG TAB PO SCH ×3 (05:38→15:42)
[2017-07-20 08:30] VITALS: BP 107/63; PULSE 73; RESP 18
[2017-07-20] MEDS: FERROUS SULFATE (EC) 325 MG TAB PO SCH (11:21)
[2017-07-20] MEDS: FOLIC ACID 1 MG TAB PO SCH (11:21)
[2017-07-20] MEDS: PRENATAL VITAMIN PO SCH (11:21)
[2017-07-20] MEDS: SENNA/DOCUSATE NA (8.6MG/50MG) TAB PO SCH (11:22)
[2017-07-20 16:00] VITALS: BP 110/70; PULSE 73; RESP 18
--- NOTE | 2017-07-20 19:36 | DS ---
Date/Time of Note Date/Time of Note DATE: 07/20/17 TIME: 19:33 Obstetrical Discharge Record Final Diagnosis Final Diagnosis: Term delivered Vaginal Delivery Obstetrical Delivery: Spontaneous Condition on Discharge Physical Assessment Voiding: Yes Bowel Movement: Yes Breast: Soft, non-tender Fundus: Firm Abdomen and Incision: Current Medications Medications (Trade) Dose Ordered Sig/Shelley Route PRN Reason Start Time Stop Time Status Last Admin Dose Admin Lactated Ringer's 1,000 ml @ 125 mls/hr Q8H IV 07/18/17 06:00 07/19/17 23:05 DC 07/18/17 06:26 Ampicillin 100 ml @ 100 mls/hr ONCE ONCE IV 07/18/17 06:00 07/18/17 06:59 DC 07/18/17 06:27 Ampicillin (Ampicillin 1 Gm/ NS (Pmx)) 50 ml @ 100 mls/hr Q4H IV 07/18/17 10:00 07/18/17 11:46 DC Butorphanol Tartrate (Stadol) 2 mg Q2H PRN IV PAIN 07/18/17 06:00 07/18/17 11:46 DC Lidocaine 30 ml 30 ml ONCE PRN INJ EPISIOTOMY/TEARING 07/18/17 06:00 07/18/17 11:46 DC 07/18/17 10:33 Oxytocin/Lactated Ringer's 500 ml @ 125 mls/hr ONCE -MAY REPEAT X1 IV 07/18/17 06:00 07/18/17 11:46 DC 07/18/17 11:01 Oxytocin/Lactated Ringer's 500 ml @ 125 mls/hr ONCE IV 07/18/17 06:00 07/20/17 18:20 DC Lactated Ringer's 1,000 ml @ 2,000 mls/hr Q30M PRN IV PRE-EPIDURAL BOLUS 07/18/17 07:00 07/18/17 11:46 DC Oxytocin/Lactated Ringer's 500 ml @ 0 mls/hr ONCE PRN IV For Hemorrhage Management 07/18/17 06:00 07/18/17 11:46 DC Methylergonovine Maleate (Methergine) 0.2 mg ONCE PRN IM VAGINAL BLEEDING 07/18/17 06:00 07/18/17 11:46 DC Carboprost Tromethamine (Hemabate) 250 mcg ONCE PRN IM VAGINAL BLEEDING 07/18/17 06:00 07/18/17 11:46 DC Misoprostol (Cytotec) 1,000 mcg ONCE PRN [place] VAGINAL BLEEDING 07/18/17 06:00 07/20/17 18:20 DC Mineral Oil (Muri-Lube) 2 ml ONCE ONCE TOP 07/18/17 08:00 07/18/17 08:01 DC Ibuprofen (Motrin) 600 mg ONCE PRN PO Mild Pain (Pain Score 1-3) 07/18/17 08:00 07/20/17 18:20 DC 07/18/17 10:34 Fentanyl (Sublimaze) 100 mcg STK-MED ONCE .ROUTE 07/18/17 09:09 07/18/17 09:10 DC Fentanyl 100 mcg 100 mcg ONCE ONCE IV 07/18/17 09:30 07/18/17 09:31 DC Oxytocin/Lactated Ringer's 500 ml @ 125 mls/hr Q4H IV 07/18/17 11:42 07/18/17 19:41 DC 07/18/17 13:36 Lactated Ringer's (Lr) 1,000 ml @ 125 mls/hr Q8H IV* 07/18/17 11:42 07/19/17 23:05 DC Ibuprofen (Motrin) 600 mg Q6 PO 07/18/17 12:00 07/20/17 18:20 DC 07/20/17 15:42 Acetaminophen/ Hydrocodone Bitart ([place] (5/325)) 1 tab Q4H PRN PO PAIN LEVEL 1-5 07/18/17 12:00 07/20/17 18:20 DC 07/20/17 17:19 Acetaminophen/ Hydrocodone Bitart ([place] (5/325)) 2 tab Q4H PRN PO PAIN LEVEL 6-10 07/18/17 12:00 07/20/17 18:20 DC 07/19/17 03:40 Senna/Docusate Sodium (Senokot-S) 1 tab BID PO 07/18/17 21:00 07/20/17 18:20 DC 07/20/17 11:22 Witch Anne Marie/ Glycerin (Tucks Pads) 1 pad BEDSIDE MEDICATION PRN [place] HEMORRHOID/EPISIOTMY PAIN 07/18/17 12:00 9/27/17 18:20 DC 07/18/17 13:36 Benzocaine 1 spray 1 spray BEDSIDE MEDICATION PRN TOP HEMORRHOID/EPISIOTMY PAIN 07/18/17 12:00 07/20/17 18:20 DC 07/18/17 13:36 Oxytocin/Lactated Ringer's 500 ml @ 0 mls/hr ONCE PRN IV For Hemorrhage Management 07/18/17 12:00 07/20/17 18:20 DC Methylergonovine Maleate (Methergine) 0.2 mg ONCE PRN IM VAGINAL BLEEDING 07/18/17 12:00 07/20/17 18:20 DC Carboprost Tromethamine (Hemabate) 250 mcg ONCE PRN IM VAGINAL BLEEDING 07/18/17 12:00 07/20/17 18:20 DC Misoprostol (Cytotec) 1,000 mcg ONCE PRN [place] VAGINAL BLEEDING 07/18/17 12:00 07/20/17 18:20 DC Ferrous Sulfate (Ferrous Sulfate (Ec)) 325 mg BID PO 07/18/17 21:00 07/20/17 18:20 DC 07/20/17 11:21 Folic Acid (Folic Acid) 1 mg DAILY PO 07/19/17 09:00 07/20/17 18:20 DC 07/20/17 11:21 Prenat Multivit/ Joanna/Iron/Folic Ac () 1 tab DAILY PO 07/19/17 09:00 07/20/17 18:20 DC 07/20/17 11:21 Influenza Virus Vaccine (Fluzone) 0.5 ml ONCE ONCE IM* 07/19/17 09:00 07/19/17 09:01 DC 07/20/17 15:35 Lanolin ([id number]) 7 applic STK-MED ONCE TOP 07/20/17 04:44 07/20/17 04:45 DC Episiotomy: healing well Calf Tenderness: No Patient Condition: Good LUIS ROSENTHAL MD Jul 20, 2017 19:36
== END 2017-07-20 18:00 | disposition home or self-care (01) | DRG 775 ==
LOC: L-D 05:40 → OBT 05:40 → L-D 05:57 → OBT 05:57 → PP1 11:31
PROVIDERS: ADMIT Obstetrics & Gynecology; ATTEND Obstetrics & Gynecology
PROC: 10E0XZZ Delivery of Products of Conception, External Approach (ICD-10-PCS; principal; 2017-07-18)
DX: O80 Encounter for full-term uncomplicated delivery (principal); Z37.0 Single live birth; Z3A.39 39 weeks gestation of pregnancy
CPT/HCPCS: 80307; 85025; 85610; 85730; 86592; 86900; 86901; 87340; 90686; G0463; J0290; J2590; J3010; J7120